=== PATIENT | male | born 1995 | race Caucasian/White ===

== ENCOUNTER 2016-04-28 22:04 | Inpatient (IN) | payer MEDICAID, OTHER ==
[~2016-04-28] VITALS: Ht 177.8 cm; Wt 80.0 kg
[2016-04-28 22:15] VITALS: BP 130/66; PULSE 62; RESP 16; TEMP 98.2; O2SAT 96
[2016-04-28] MEDS ORDERED: LACTATED RINGER'S 1000 ML INJ 1,000 ML IV SCH (22:50)
[2016-04-28] MEDS ORDERED: ONDANSETRON HCL 4 MG/2 ML VIAL IV PRN (23:00)
[2016-04-28] MEDS ORDERED: CHLORHEXIDINE GLUCONATE 2 % 1 PACK (2 CLOTHS) TOP PRN (23:00)
[2016-04-28] MEDS ORDERED: MISCELLANEOUS NURSING INFORMATION XX SCH (23:00)
[2016-04-28] MEDS ORDERED: MAGNESIUM HYDROXIDE SUSP 30 ML CUP PO PRN (23:00)
[2016-04-28] MEDS ORDERED: SODIUM CHLORIDE 0.9% FLUSH 5 ML FLUSH IVF PRN (23:00)
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
[2016-04-28] MEDS ORDERED: ONDANSETRON HCL 4 MG/2 ML VIAL IV PUSH ONE (23:30)
[2016-04-28] MEDS ORDERED: MORPHINE SULFATE 8 MG/ML INJ IV PUSH ONE (23:30)
[2016-04-29] MEDS ORDERED: ENOXAPARIN SODIUM 30 MG/0.3 ML SYRINGE SQ SCH
[2016-04-29 00:09] VITALS: BP 127/63; PULSE 56; RESP 16; O2SAT 96
[2016-04-29] MEDS ORDERED: CHLORHEXIDINE GLUCONATE 2 % 1 PACK (2 CLOTHS) TOP SCH (04:00)
[2016-04-29] MEDS: HYDROmorphone HCL PF 1 MG/ML VIAL IVP PRN ×2 (04:21→08:49)
[2016-04-29 04:23] VITALS: BP 122/56; PULSE 57; RESP 16; O2SAT 96
[2016-04-29 05:50] LABS: BICARBONATE 25.8 MEQ/L (21.0-32.0); POTASSIUM 3.6 MEQ/L (3.5-5.1)
[2016-04-29 06:32] LABS: AUTOMATED NEUTROPHIL # 4.9 TH/MM3 (1.8-7.7); BASOPHIL % 0.5 % (0.0-2.0); EOSINOPHIL # 0.1 TH/MM3 (0-0.4); EOSINOPHIL % 0.8 % (0.0-4.0); HEMATOCRIT 36.6 % (39.0-51.0); HEMO FLAGS DIFF FINAL; LYMPH % 29.2 % (9.0-44.0); LYMPHOCYTE # 2.4 TH/MM3 (1.0-4.8); MEAN CELL VOLUME 82.9 FL (80.0-100.0); MEAN CORPUSCULAR HEMOGLOBIN 29.4 PG (27.0-34.0); MEAN CORPUSCULAR HGB CONC 35.5 % (32.0-36.0); NEUT % 58.5 % (16.0-70.0); PLATELET COUNT 196 TH/MM3 (150-450); RED BLOOD COUNT 4.42 MIL/MM3 (4.50-5.90); WHITE BLOOD COUNT 8.3 TH/MM3 (4.0-11.0)
--- NOTE | 2016-04-29 06:33 | RADRPT ---
EXAM DATE/TIME: 04/29/2016 05:57 [place] COMPARISON: No previous studies available for comparison. INDICATIONS : [place] [facility] [place] Complains of left ankle pain and minor swelling medially. MEDICAL HISTORY : None. SURGICAL HISTORY : None. ENCOUNTER: Initial ACUITY: 1 day PAIN SCORE: 2/10 LOCATION: Left Ankle FINDINGS: 3 views of the left ankle demonstrate no fracture or dislocation. There is a small osseous density ad jacent to the tip of the medial malleolus. Ankle mortise is intact. No significant soft tissue swelli ng is appreciated. There is no radiopaque foreign body visualized. CONCLUSION: No acute left ankle abnormality is identified. The small ossific density adjacent to the medial malle olus has an appearance favoring normal variant or change related to old injury over fracture. Joseph Coleman MD on April 29, 2016 at 6:29 Board Certified Radiologist. This report was verified electronically.
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
[2016-04-29 07:59] VITALS: BP 129/60; PULSE 56; RESP 20; O2SAT 95
[2016-04-29] MEDS ORDERED: DOCUSATE SODIUM 100 MG CAP PO SCH (09:00)
[2016-04-29] MEDS ORDERED: PERC5TAB12 PO (10:10)
[2016-04-29 12:15] VITALS: BP 128/76
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
== END 2016-04-29 12:24 | disposition home or self-care (01) | DRG 89 ==
LOC: NEPE 22:04 → OBSVTOIN 23:29 → NEDA 23:29 → NEDH 04-29 03:29
PROVIDERS: ADMIT Surgery; ATTEND Surgery
DX: S06.0X1A Concussion with loss of consciousness of 30 minutes or less, initial encounter (principal); S42.254A Nondisplaced fracture of greater tuberosity of right humerus, initial encounter for closed fracture; S43.109A Unspecified dislocation of unspecified acromioclavicular joint, initial encounter; S42.114A Nondisplaced fracture of body of scapula, right shoulder, initial encounter for closed fracture; S93.402A Sprain of unspecified ligament of left ankle, initial encounter; V86.99XA Unspecified occupant of other special all-terrain or other off-road motor vehicle injured in nontraffic accident, initial encounter
CPT/HCPCS: 73610; 80048; 85025; 94150; 99285; J1170; J1650; J2270; J2405; J7120